=== PATIENT | female | born 1965 | race Caucasian/White ===

== ENCOUNTER → 2019-03-24 18:15 | Outpatient (CLI) | payer BC | END | disposition home or self-care (01) | LOC: D.LABREF 18:15 | PROVIDERS: ATTEND Orthopaedic Surgery | DX: M25.552 Pain in left hip (principal) ==

== ENCOUNTER 2019-03-25 13:19 | Inpatient (IN) | payer BC ==
[~2019-03-25] VITALS: Ht 157.5 cm; Wt 68.2 kg
[2019-04-14 10:58] LABS: BASOPHILS 0.7 % (0-2); EOSINOPHILS 2.3 % (0-7); HEMATOCRIT 40.7 % (36.0-48.0); HEMOGLOBIN 13.6 g/dL (12-16); IMMATURE GRANULOCYTES 0.2 % (0-5); LYMPHOCYTES 24.2 % (15-50); MCH 32.8 pg (26.0-34.0); MCHC 33.4 g/dL (31.0-37.0); MCV 98.1 fL (80.0-100.0); MEAN PLATELET VOLUME 11.6 fL (7.4-10.4); MONOCYTES 7.9 % (2-11); NEUTROPHILS 64.7 % (40-80); PLATELET COUNT 245 10x3/uL (130-400); RBC 4.15 10x6/uL (4.00-5.40); WBC 4.3 10x3/uL (4.8-10.8)
[2019-04-14 11:06] LABS: CALC OSMOLALITY 282 mosm/kg (275-300); CHLORIDE - SERUM 106 mmol/L (98-107); CREATININE - SERUM 0.7 mg/dL (0.6-1.3); GLUCOSE 100 mg/dL (74-106); POTASSIUM - SERUM 4.1 mmol/L (3.5-5.1); SODIUM 142 mmol/L (136-145); UREA NITROGEN 12 mg/dL (7-18); eGFR NON AFRICAN AMERICAN > 90 mL/min (90-120)
[2019-04-14 11:19] LABS: APTT 23.8 SECONDS (22.8-39.4); PROTIME 12.7 SECONDS (11.6-15.0)
[2019-04-14 11:31] LABS: APPEARANCE CLEAR (CLEAR); BACTERIA FEW /hpf (NONE SEEN); BILIRUBIN NEGATIVE (NEGATIVE); COLOR YELLOW (YELLOW); EPITHELIAL CELLS OCC /hpf (0-5); GLUCOSE NEGATIVE (NEGATIVE); KETONE NEGATIVE (NEGATIVE); NITRITE NEGATIVE (NEGATIVE); PROTEIN NEGATIVE (NEGATIVE); UROBILINOGEN NORMAL (NORMAL); WHITE CELLS - URINE OCC /hpf (0-5)
[2019-04-19 08:04] VITALS: BP 128/75; BMI 27.5
[2019-04-19 14:40] VITALS: BP 138/74
[2019-04-19 14:55] VITALS: BP 138/74; Ht 157.5 cm; Wt 68.2 kg
--- NOTE | 2019-04-19 15:49 | NUR ---
PT SITTING UP IN BED WITH SPOUSE AT BEDSIDE, NO NEEDS VOICED, CL IN REACH, CONTINUE WITH PLAN OF CARE
[2019-04-19 17:15] VITALS: BP 92/54
--- NOTE | 2019-04-19 18:18 | NUR ---
PT HAS NOT VOIDED, STATED SHE DOES NOT FEEL THE NEED TO AT THIS TIME, ADVISED HER IF SHE HAS NOT VOIDED BY 11 WE WILL BLADDER SCAN HER. PT FELL ASLEEP AFTER PAIN MEDS ADMINISTERED, WILL CONTINUE WITH PLAN OF CARE
[2019-04-19 20:00] VITALS: BP 93/46
--- NOTE | 2019-04-19 23:00 | NUR ---
RECEIVED CARE FROM PREVIOUS NURSE. SITTING UP IN BED WATCHING TV WITH SPOUSE AT SIDE. NO NEEDS VOICED. CALL LIGHT AT SIDE.
--- NOTE | 2019-04-20 02:58 | NUR ---
I have reviewed this patient and I concur with the Shift Assessment completed by the Licensed Practical Nurse today this shift.
[2019-04-20 05:42] LABS: HEMATOCRIT 29.9 % (36.0-48.0); MCH 32.5 pg (26.0-34.0); MCHC 33.4 g/dL (31.0-37.0); MCV 97.1 fL (80.0-100.0); MEAN PLATELET VOLUME 12.4 fL (7.4-10.4); RBC 3.08 10x6/uL (4.00-5.40); RDW 12.9 % (11.5-14.5); WBC 6.6 10x3/uL (4.8-10.8)
[2019-04-20 06:26] VITALS: BP 95/47
--- NOTE | 2019-04-20 07:45 | NUR ---
Sitting up in bed watching tv, at bedside. Assessment complete. Alert and oriented X 3. No signs of distress, denies pain. IV in right forearm patent, no redness or edema, NS running at 75 ml/hr. Respirations unlabored and even. Denies any needs. Bed low with call light in reach.
[2019-04-20 09:30] VITALS: BP 91/46
--- NOTE | 2019-04-20 11:00 | NUR ---
Up to toilet, clear yellow urine. Up in chair watching tv. Denies needs, call light in reach.
--- NOTE | 2019-04-20 12:30 | NUR ---
Right forearm IV infiltrated. Moved 22g to left hand after two attempts.
[2019-04-20 12:49] VITALS: BP 101/55
--- NOTE | 2019-04-20 14:35 | NUR ---
late entry 1350 22 gauge iv started in left hand x 1 stick flushed without difficulty secured with tape and tegaderm there is no edema or redness noted.
--- NOTE | 2019-04-20 15:00 | OP ---
PATIENT NAME: SIMONA PERRY MEDICAL RECORD: [id number] :61 LOCATION:D.MS [id number] ADMISSION DATE:04/19/19 SURGEON: LISA DE MD DATE OF OPERATION: 04/19/2019 PREOPERATIVE DIAGNOSIS: Failed total hip arthroplasty, left. POSTOPERATIVE DIAGNOSIS: Failed total hip arthroplasty, left. PROCEDURE: Revision left total hip arthroplasty, allograft bone grafting 40 cc. SURGEON: Lisa De MD LABORER PRESTRESSED CONCRETE: Dewayne Cobos. INTRAOPERATIVE COMPLICATIONS: Essentially none. SUMMARY OF PATHOLOGIC FINDINGS: The patient's 21-year-old hip had undergone complete volumetric wear. 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 It is of note that the distal aspect of the stem was extremely well fixed and as such corticotomy was not performed. The stem was left in place. The femoral head was changed along with the acetabulum. Approximately 40 cc of allograft bone was utilized, 20 cc of BIO4 and 20 cc of Colleen biologic bone grafting were used in this case. ESTIMATED BLOOD LOSS: 300 cc. OPERATIVE SUMMARY IN DETAIL: After obtaining the appropriate preoperative orthopedic surgery consent as well as anesthetic consultation, evaluation and clearance, the patient was brought to the operating room and placed on the operating table in supine position. After adequate general laryngeal mask airway was administered, the patient was placed in a right lateral decubitus position. All pressure points well-padded to include down leg peroneal pad as well as axillary roll. She was held firmly to the operating table using the vacuum pack suction system. Left lower extremity and hip were then prepped and draped in routine sterile fashion. At this point, the appropriate timeout was taken and agreed upon by all. Curvilinear incision was made over the greater trochanter, taken down to the IT band, which was split in line with the fibers of the IT band to reveal the gluteus medius minimus attachment. These were reflected anteriorly and saved for later reapproximation. Substantial dissection was carried out to the capsule, early metalosis was seen in the capsule; however, with removal of the capsule, further metalosis was seen. The hip was dislocated. At this point, the previously placed ball was removed. Stem was evaluated. Curettage was carried out about the proximal stem to remove all the metalosis, which was approximately 30 cc in its entirety. The very tip of the greater trochanter was weak; however, it maintained its attachment primarily by soft tissue. This was treated very carefully. At this point, the acetabulum was exposed in its entirety. Circumferential removal of all osteophytes as well as soft tissue was done to completely expose the acetabulum. Polyethylene was removed and it was noted to have a hole in the superior aspect of it consistent with complete volumetric wear over 21 years. This was sent for pathology. At this point, the cup itself was evaluated and through each screw hole substantial metalosis was noted. EZout hip removal device from [employer] was then utilized. The cup was removed in its entirety with absolutely no bone OPERATIVE REPORT [id number] SIMONA PERRY. When the cup was removed; however, a very large cavitary lesion was noted in the superior posterior aspect of the hip. Copious irrigation and curettage was then used to remove all metalosis that could be found. Serial and sequential reaming to a size 58 was then followed by packing bone BIO4 graft into the large cavitary lesion in all areas that appeared to have some small cavitary effect. Reverse reaming was then followed by placement of the cup, which did get excellent capture. A single screw was placed straight up the ilium for further fixation. This resulted in excellent stabilization of the construct. A 40 mm polyethylene was then put into place. At this point, trial was undertaken. It was felt that the +5 DePuy trial on the old AML stem would be the most appropriate. This ceramic was put into place, reduced, taken through range of motion and x-rayed. X-rays were great, stability was normal. At this point, an additional 20 cc of Colleen bone graft was placed in and around the proximal calcar where osteolysis was seen. 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 After packing and copious irrigation, tobramycin and vancomycin were placed into the wound. The gluteus medius and minimus were reapproximated to the greater trochanter in a transosseous fashion using #5. The #5 Ethibond likewise was utilized to close the IT band followed by #1 Vicryl, 2-0 Vicryl and skin javier. Sterile dressings were applied. Final closure was achieved by Dewayne Cobos. The patient was awakened and taken to the recovery room in stable condition. All final needle and sponge counts were correct. TRANSINT:[id number] Voice Confirmation ID: [id number] DOCUMENT ID: [id number] KENISHA MACIAS, LISA ROME at 1500 CC: [id number] DICTATION DATE: 04/20/19928 REGISTERED DIETITIAN: 04/20/19 1057 ADM IN [facility] [address] [place] [address]
[2019-04-20 17:44] VITALS: BP 90/49
--- NOTE | 2019-04-20 18:33 | NUR ---
UP IN CHAIR EATING SUPPER. DENIES PAIN. NO NEEDS AT THIS TIME.
--- NOTE | 2019-04-20 19:35 | NUR ---
PT SITTING UP IN BEDSIDE CHAIR WITHOUT DISTRESS, ALERT AND ORIENTED. SPOUSE AT BEDSIDE. DENIES PAIN. IV LEFT FA SL, NO REDNESS OR SWELLING AT INSERTION SITE, FLUSHES EASILY. REFUSES SCDS. DENIES NEEDS AT THIS TIME. CL IN REACH, WILL CTM
[2019-04-20 20:40] VITALS: BP 100/53
[2019-04-21 00:51] VITALS: BP 97/48
[2019-04-21 04:48] VITALS: BP 112/60
[2019-04-21 06:21] LABS: HEMATOCRIT 27.3 % (36.0-48.0); MCH 32.5 pg (26.0-34.0); MCV 98.6 fL (80.0-100.0); MEAN PLATELET VOLUME 11.9 fL (7.4-10.4); RBC 2.77 10x6/uL (4.00-5.40); RDW 13.3 % (11.5-14.5)
[2019-04-21 06:24] LABS: WBC 3.8 10x3/uL (4.8-10.8)
--- NOTE | 2019-04-21 08:00 | NUR ---
AWAKE AND ALERT. ORIENTED X3. NO C/O AT THIS TIME. LUNGS ARE CLEAR BILATERALLY, NO COUGH NOTED. SKIN IS INTACT WITHOUT REDNESS EXCEPT INCISION TO LEFT HIP WHICH HAS A DRY INTACT DRESSING IN PLACE. SL TO LEFT HAND IS PATENT WITHOUT REDNESS AT INSERTION SITE. DENIES NEEDS.
[2019-04-21 08:52] VITALS: BP 112/58
[2019-04-21] MEDS ORDERED: ELIQUIS2.5 MG PO (08:54)
[2019-04-21] MEDS ORDERED: HYDROCODON-ACE1 EA10 PO (08:54)
--- NOTE | 2019-04-21 10:00 | NUR ---
ATE MOST OF BREAKFAST AND TOOK AM MEDS WITHOUT DIFFICUTLY. AMBULATED IN HALLWAY WITH PT. DENIES PAIN. REFUSED OFFER OF PAIN MEDS.
--- NOTE | 2019-04-21 11:21 | MORECARE ---
CASE MANAGEMENT DISCHARGE SUMMARY PATIENT: SIMONA PERRY UNIT: [id number] ADM DATE: 04/19/19 AGE: 53 : 61 SEX: F ROOM/BED: D.2212 AUTHOR: ROSADOC PHYSICIAN: REFERRING PHYSICIAN: LISA DE MD DATE OF SERVICE: 04/21/19 Discharge Plan Patient Name: SIMONA PERRY Facility: [facility]:[place] : 1965 Planned Disposition: Home or Self Care Anticipated Discharge Date: Discharge Date: Expected LOS: Initial Reviewer: [email or web address] Initial Review Date: 04/19/2019 Generated: 04/21/19 12:20 pm Comments DCP- Discharge Planning Updated by [email or web address]: Rona Winters on 04/21/19 10:[address] Patient Name: SIMONA PERRY Admission Status: Elective Accout number: [id number] Admission Date: 04-19-2019 : 1965 Admission Diagnosis: Attending: LISA DE Current LOS: 2 Anticipated DC Date: Planned Disposition: Home or Self Care Primary Insurance: [employer] OUT OF STATE Discharge Planning Comments: CM met with patient to complete initial dc planning assessment. CM educated patient on the CM role and verbal consent given by patient to complete assessment. Patient lives at home with her where she is independent with her care. At discharge patient plans to return home and feels this is a safe discharge. CM discussed availability of home health, rehab services, and medical equipment. Patient will be doing OP PT at [facility] in [place]. I spoke with Kisha and faxed orders to her , I set up her appointment for FridayApril 23 at 1:00. A walker and a BSC will be delivered to the hospital from [facility] (Dr Winston office set this up, I called and spoke with Dayanna to verify) Patient denied known discharge needs at this time. Her is in the room and will be her special education bus driver home. CM will continue to follow and will assist as needed with dc plans/needs. Tail Board Man: Rona Winters DCPIA - Discharge Planning Initial Assessment Updated by [email or web address]: Rona Winters on 04/21/19 11:15 am * Is the patient Alert and Oriented? Yes * How many steps to enter\exit or inside your home? * PCP none * [facility] * Preadmission Environment Home with Family * ADLs Independent * Equipment Crutch * Other Equipment WALKER AND BSC (WILL BE DELIVERED TO HOSPITAL) * List name and contact numbers for known caregivers / representatives who currently or will assist patient after discharge: STEPHEN [phone] * Verbal permission to speak to the caregivers and representatives has been obtained from the patient. Yes * Community resources currently utilized None * Additional services required to return to the preadmission environment? Yes * Can the patient safely return to the preadmission environment? Yes * Has this patient been hospitalized within the prior 30 days at any hospital? No Patient Name: SIOMNA PERRY Page [id number] at 1121 All edits/amendments must be made on the electronic document DICTATION DATE: 04/21/19 112 ARSON AND BOMB INVESTIGATOR: GLADIS 04/21/19 1120 RPT#: [id number] DC DATE: STATUS: ADM IN [facility] [address] [place] [address] END OF REPORT
--- NOTE | 2019-04-21 11:53 | NUR ---
DRESSING CHANGED TO LEFT HIP, INCISION IS CLEAN DRY AND WELL APPROXIMATED WITH CLIPS INTACT. SL TO LEFT HAND D/C WITH CATHERTER INTACT. DISCHARGE PENDING.
[2019-04-21 12:18] VITALS: BP 115/62
--- NOTE | 2019-04-21 12:22 | NUR ---
DISCHARGE INSTRUCTIONS GIVEN BOTH VERBALLY AND WRITTEN. ALL QUESTIONS ANSWERED. PATIENT VERBALIZED UNDERSTANDING OF SAME. NEEDED PRESCRIPTIONS GIVEN TO PATIENT. ALL BELONGINGS WITH PATIENT.WAITING ON RIDE TO D/C HOME.
--- NOTE | 2019-04-21 12:28 | NUR ---
DISCHARGED TO HOME AMBULATORY WITH . ALL BELONGINGS WITH PATIENT.
--- NOTE | 2019-04-22 11:52 | MORECARE ---
CASE MANAGEMENT DISCHARGE SUMMARY PATIENT: SIMONA PERRY UNIT: [id number] ADM DATE: 04/19/19 AGE: 53 : 61 SEX: F ROOM/BED: D.2212 AUTHOR: BOLIVAR LEE PHYSICIAN: REFERRING PHYSICIAN: LISA DE MD DATE OF SERVICE: 04/22/19 Discharge Plan Patient Name: SIMONA PERRY Facility: [facility]:[place] : 1965 Planned Disposition: Home or Self Care Anticipated Discharge Date: Discharge Date: 04/21/2019 Expected LOS: 0 Initial Reviewer: [email or web address] Initial Review Date: 04/19/2019 Generated: 04/22/19 12:51 pm Comments DCP- Discharge Planning Updated by [email or web address]: Rona Winters on 04/21/19 10:[address] Patient Name: SIMONA PERRY Admission Status: Elective Accout number: [id number] Admission Date: 04-19-2019 : 1965 Admission Diagnosis: Attending: LISA DE Current LOS: 2 Anticipated DC Date: Planned Disposition: Home or Self Care Primary Insurance: [employer] OUT OF STATE Discharge Planning Comments: CM met with patient to complete initial dc planning assessment. CM educated patient on the CM role and verbal consent given by patient to complete assessment. Patient lives at home with her where she is independent with her care. At discharge patient plans to return home and feels this is a safe discharge. CM discussed availability of home health, rehab services, and medical equipment. Patient will be doing OP PT at [facility] in [place]. I spoke with Kisha and faxed orders to her , I set up her appointment for FridayApril 23 at 1:00. A walker and a BSC will be delivered to the hospital from [place] (Dr Winston office set this up, I called and spoke with Dayanna to verify) Patient denied known discharge needs at this time. Her is in the room and will be her crew truck driver home. CM will continue to follow and will assist as needed with dc plans/needs. Psychiatric Rn: Rona Winters DCPIA - Discharge Planning Initial Assessment Updated by [email or web address]: Rona Winters on 04/21/19 11:15 am * Is the patient Alert and Oriented? Yes * How many steps to enter\exit or inside your home? * PCP none * [facility]acy [facility] IN [place] * Preadmission Environment Home with Family * ADLs Independent * Equipment Crutch * Other Equipment WALKER AND BSC (WILL BE DELIVERED TO HOSPITAL) * List name and contact numbers for known caregivers / representatives who currently or will assist patient after discharge: STEPHEN [phone] * Verbal permission to speak to the caregivers and representatives has been obtained from the patient. Yes * Community resources currently utilized None * Additional services required to return to the preadmission environment? Yes * Can the patient safely return to the preadmission environment? Yes * Has this patient been hospitalized within the prior 30 days at any hospital? No Last DP export: 04/21/19 10:21 a Patient Name: SIMONA PERRY Page 09208 at 1152 All edits/amendments must be made on the electronic document DICTATION DATE: 04/22/19 1151 PULLER THROUGH: GLADIS 04/22/19 1151 RPT#: [id number] DC DATE:04/21/19 STATUS: DIS IN [facility] [address] [place] [address] END OF REPORT
== END 2019-04-21 12:29 | disposition home or self-care (01) | DRG 467 ==
LOC: D.SDCHOLD 04-19 07:55 → D.MS 04-19 14:37
PROVIDERS: ADMIT Orthopaedic Surgery; ATTEND Orthopaedic Surgery
PROC: 0QU Lower Bones, Supplement (ICD-10-PCS; 2019-04-19)
PROC: 0SRB04Z Replacement of Left Hip Joint with Ceramic on Polyethylene Synthetic Substitute, Open Approach (ICD-10-PCS; principal; 2019-04-19 09:45)
PROC: 0SPB0JZ Removal of Synthetic Substitute from Left Hip Joint, Open Approach (ICD-10-PCS; 2019-04-19 09:45)
DX: T84.091A Other mechanical complication of internal left hip prosthesis, initial encounter (principal); D62 Acute posthemorrhagic anemia; Y83.8 Other surgical procedures as the cause of abnormal reaction of the patient, or of later complication, without mention of misadventure at the time of the procedure; Z87.891 Personal history of nicotine dependence